=== PATIENT | female | born 1955 | race Caucasian/White ===

== ENCOUNTER → 2018-12-27 | Outpatient (REF) ==
[~2018-12-27] MED LIST: ACET1TAB15 PO; ATOR40TA75 PO; BENZ1TAB42 IM; BENZ1TAB42 PO; BENZ5TA PO; CIPR500T19; DEPA500T2 PO; DIAZ10TA2 PO; FENT10PA TD; FENT1DIS16; FENT50DI33 TD; FENT75DI18 TD; FLAG500T; FLUP25TA PO; HALO1TAB21 IM; HALO1TAB21 PO; HYDR-3644 PO; HYDR50TA70 PO; HYZA50TA2 PO; IMIT50TA PO; INVE117I IM; IRONTAB3 PO; KLON1TAB PO; KLONOPIN TD; LEVO50TA4 PO; LEVO50TA5 PO; LEVOTHYROXINE PO; LISI10TA4; LISI20TA PO; LISI5TAB PO; LITH150C PO; LITH1TAB PO; LITH300C PO; LITH600C PO; LOTRCRE TOP; Lithium Carbonate PO; MILKSUS5 PO; MYLASSUD PO; NEXI1CAP3 PO; NORV5TAB PO; OMEP40CA2 PO; PERC5TAB8; POTA20PW PO; PRIL40CA PO; Quetiapine Fumarate PO; ROBISYP3 PO; SERO1TAB PO; SERO200T PO; SERO50TA PO; SYNT50TA PO; SYNTHROID PO; TIZA4CAP PO; TRAZ-163 PO; TYLE325T5 PO; TYLENOL #3; VALI10TA PO; VALI5TAB PO; VIST50CA PO; VITA-112 PO; VITAMIN B12 PO; VITAMIN D PO; ZEST5TAB PO; [UNRECOGNIZED DRUG - OTHER] EX; no home med
== END ==
LOC: M LAB 12:20